=== PATIENT | male | born 1995 | race Two or more races ===

== ENCOUNTER → 2019-07-15 | Outpatient (CLI) | payer MEDICAID, OTHER ==
[2019-07-15 15:06] LABS: HEMOGLOBIN 15.9 g/dl (13.5-17.5); MEAN CORPUSCULAR HEMOGLOBIN 29.8 pg (27.0-33.0); MEAN CORPUSCULAR HGB CONC 33.8 g/dl (32.0-36.5); MEAN CORPUSCULAR VOLUME 88.2 fl (80.0-96.0); PLATELET COUNT, AUTOMATED 205 10^3/uL (150-450); RED BLOOD COUNT 5.33 10^6/uL (4.30-6.10); WHITE BLOOD COUNT 6.7 10^3/uL (4.0-10.0)
[2019-07-15 15:46] LABS: ALBUMIN 4.4 GM/DL (3.2-5.2); ALT/SGPT 22 U/L (12-78); BILIRUBIN,TOTAL 0.5 MG/DL (0.2-1.0); BLOOD UREA NITROGEN 11 MG/DL (7-18); CALCIUM LEVEL 9.7 MG/DL (8.5-10.1); CARBON DIOXIDE LEVEL 28 MEQ/L (21-32); CHLORIDE LEVEL 108 MEQ/L (98-107); CREATININE FOR GFR 0.94 MG/DL (0.70-1.30); GLOMERULAR FILTRATION RATE > 60.0 (>60); GLUCOSE, FASTING 105 MG/DL (70-100); POTASSIUM SERUM 4.3 MEQ/L (3.5-5.1); SODIUM LEVEL 142 MEQ/L (136-145); TOTAL PROTEIN 7.9 GM/DL (6.4-8.2)
[2019-07-15 16:27] LABS: CHLAMYDIA DNA AMPLIFICATION NEGATIVE (NEGATIVE); GC DNA AMPLIFICATION NEGATIVE (NEGATIVE)
[2019-07-16 10:09] LABS: HEPATITIS B SURFACE ANTIGEN NEGATIVE (NEGATIVE)
[2019-07-16 10:26] LABS: HEPATITIS C VIRUS ABY INDEX 0.1 INDEX (<0.8); HIV 1&2 SCREEN CENTAUR NEGATIVE (NEGATIVE)
--- NOTE | 2019-07-16 17:30 | ECGEPIP ---
[facility] Test Date: 2019-07-15 Pat Name: ROMELIA BAEZ Department: Room: - Gender: Male Forepart Rasper: RF : 1995 Requested By: Giovanny Power Order Number: [id number] Reading MD: Rayo Lau Measurements Intervals [place] Rate: 72 P: 58 AK: 179 QRS: 73 QRSD: 110 T: 63 QT: 377 QTc: 413 Interpretive Statements SINUS RHYTHM ST ELEVATION, PROBABLY EARLY REPOLARIZATION Comparison tracing not on file Electronically Signed on 07-16-2019 17:30:06 EST by Rayo Lau
== END ==
LOC: M LAB 14:23
PROVIDERS: ATTEND Family Medicine
DX: F11.90 Opioid use, unspecified, uncomplicated (principal)